=== PATIENT | female | born 1985 | race African-American/Black ===

== ENCOUNTER 2018-11-21 14:50 | Emergency (ER) | payer SELFPAY ==
--- NOTE | 2018-11-21 15:15 | RAD ---
XR Hand Rt 3 View STANDARD: 11/21/2018 2:57 PM CLINICAL INDICATION: Injury COMPARISON: None. FINDINGS: Fracture:No fracture. Arthropathy:None of significance. Incidental findings:None of significance. IMPRESSION: 1. No acute osseous abnormality.
[2018-11-21] MEDS ORDERED: Adacel (T-DAP) 0.5 ML SYRINGE ONE (15:57)
== END 2018-11-21 16:05 | disposition home or self-care (01) ==
LOC: ERS 14:50
DX: S61.411A Laceration without foreign body of right hand, initial encounter (principal); F32.9 Major depressive disorder, single episode, unspecified; Z23 Encounter for immunization; W25.XXXA Contact with sharp glass, initial encounter
CPT/HCPCS: 90471; 90715